=== PATIENT | male | born 1955 | race Caucasian/White ===

== ENCOUNTER 2017-11-25 08:49 | Day surgery (SDC) | payer BC ==
[~2017-11-25 08:49] MED LIST: Cefuroxime 10 MG/ML SYRINGE EYERT SCH; Lidocaine 1% PF 2 ML SDV INJECT SCH; Pilocarpine 4% Ophth Soln 15 ML Bot EYERT SCH
[2017-11-25] MEDS: Polymyxin B/Trimethoprim 10 ML Bottle EYERT SCH ×3 (10:01→11:44)
[2017-11-25] MEDS: Brimonidine 0.2% Ophth Soln 5 ML Bottle EYERT SCH ×3 (10:07→11:44)
[2017-11-25] MEDS: Phenylephrine 2.5% Ophth Soln 2 ML Bot EYERT SCH ×5 (10:16→11:26)
--- NOTE | 2017-11-25 10:32 | PCM.PREANE ---
Preanesthetic Assessment - Procedure Proposed Procedure: Right Eye extraction with implant - Anesthesia/Transfusion/Family Hx Anesthesia History: No Prior Anesthesia Family History of Anesthesia Reaction: No - Review of Systems General: No Symptoms Pulmonary: No Symptoms Cardiovascular: No Symptoms Gastrointestinal: No Symptoms Neurological: No Symptoms Other: Reports: None - Physical Assessment NPO Status Date: 11/24/17 NPO Status Time: 19:00 O2 Sat by Pulse Oximetry: 98 Respiratory Rate: 16 Vital Signs: Last Vital Signs Temp 36.4 C 11/25/17 09:50 Pulse 54 L 11/25/17 09:50 Resp 16 11/25/17 09:50 BP 129/71 11/25/17 09:50 Pulse Ox 98 11/25/17 09:50 Height: 1.83 m Weight: 90.718 kg ASA Class: 2 Mental Status: Alert & Oriented x3 Dentition: Reports: Dentures (upper ) Thyro-Mental Finger Breadths: 3 Mouth Opening Finger Breadths: 5 ROM/Head Extension: Full Lungs: Clear to Auscultation, Normal Respiratory Effort Cardiovascular: Regular Rate, Regular Rhythm - Allergies Allergies/Adverse Reactions: Allergies Allergy/AdvReac Type Severity Reaction Status Date / Time No Known Allergies Allergy Verified 11/24/17 15:01 - Blood Blood Available: No - Anesthesia Plan Pre-Op Medication Ordered: None Beta Joshua: Carvedilol Med Last Dose Date: 11/25/17 Med Last Dose Time: 07:30 - Acknowledgements Anesthesia Type Planned: MAC Pt an Appropriate Candidate for the Planned Anesthesia: Yes Alternatives and Risks of Anesthesia Discussed w Pt/Guardian: Yes Pt/Guardian Understands and Agrees with Anesthesia Plan: Yes PreAnesthesia Questionnaire - Past Health History Medical/Surgical History: Denies Medical/Surgical History - SUBSTANCE USE Recreational Drug Use History: No - HOME MEDS Home Medications: Home Meds Carvedilol [Carvedilol] 6.25 mg PO BID 11/24/17 [History] Hydrochlorothiazide [Hydrochlorothiazide] 25 mg PO DAILY 11/24/17 [History] Multivitamin [Zoo Chews] 1 tab PO DAILY 11/24/17 [History] amLODIPine Besylate [Amlodipine Besylate] 10 mg PO DAILY 11/24/17 [History] - CURRENT (IN HOUSE) MEDS Current Meds: Current Medications Brimonidine Tartrate (Alphagan 0.2% Oph Soln) 0 ml EYERT ASDIRECTED [facility]A Stop: 11/25/17 18:00 Last Admin: 11/25/17 10:07 Dose: 1 drop Cefuroxime Sodium (Zinacef) 0 mg EYERT ASDIRECTED [facility] Stop: 11/25/17 18:00 Lidocaine HCl (Xylocaine-Mpf 1%) 10 ml INJECT ASDIRECTED [facility] Stop: 11/25/17 18:00 Phenylephrine HCl (Timoteo-Synephrine 2.5% Ophth Soln) 0 ml EYERT ASDIRECTED [facility] Stop: 11/25/17 18:00 Last Admin: 11/25/17 10:16 Dose: 1 drop Pilocarpine HCl (Pilocar 4% Ophth Soln) 0 ml EYERT ASDIRECTED [facility] Stop: 11/25/17 18:00 Polymyxin/Trimethoprim Sulfate (Polytrim Ophth Soln) 0 ml EYERT ASDIRECTED [facility] Stop: 11/25/17 18:00 Last Admin: 11/25/17 10:01 Dose: 1 drop Tetracaine HCl (Tetracaine 0.5% Steri-Unit Nafisa) 0 ml EYERT ASDIRECTED [facility] Stop: 11/25/17 18:00 Tropicamide (Mydriacyl 1% Ophth Soln) 0 ml EYERT ASDIRECTED [facility] Stop: 11/25/17 18:00 Last Admin: 11/25/17 10:22 Dose: 1 drop
[2017-11-25] MEDS: Tetracaine HCl/PF 0.5% 4 ML Bottle EYERT SCH ×2 (11:09→11:34)
--- NOTE | 2017-11-25 11:59 | PCM48HPAN ---
Post Anesthesia Note - EVALUATION WITHIN 48HRS OF ANESTHETIC Vital Signs in Normal Range: Yes Patient Participated in Evaluation: Yes Respiratory Function Stable: Yes Airway Patent: Yes Cardiovascular Function Stable: Yes Hydration Status Stable: Yes Pain Control Satisfactory: Yes Nausea and Vomiting Control Satisfactory: Yes Mental Status Recovered: Yes Pulse Rate: 64 SaO2: 100 Resp Rate: 16 Temperature: 36.9 C Blood Pressure: 131/86
== END 2017-11-25 11:57 | disposition home or self-care (01) ==
LOC: JD.SDS 08:49
PROVIDERS: ATTEND Ophthalmology
DX: H25.813 Combined forms of age-related cataract, bilateral (principal); H35.3131 Nonexudative age-related macular degeneration, bilateral, early dry stage; H35.363 Drusen (degenerative) of macula, bilateral; H02.834 Dermatochalasis of left upper eyelid; H02.831 Dermatochalasis of right upper eyelid; I10 Essential (primary) hypertension; Z87.891 Personal history of nicotine dependence; Z79.899 Other long term (current) drug therapy
CPT/HCPCS: 66984; J0697; A9270-GY; C1780; J2001

== ENCOUNTER 2018-01-27 08:22 | Day surgery (SDC) | payer BC ==
[~2018-01-27 08:22] MED LIST changes: -Cefuroxime 10 MG/ML SYRINGE EYERT SCH; -Pilocarpine 4% Ophth Soln 15 ML Bot EYERT SCH
[2018-01-27] MEDS: Polymyxin B/Trimethoprim 10 ML Bottle EYELF SCH ×3 (08:57→10:34)
[2018-01-27] MEDS: Brimonidine 0.2% Ophth Soln 5 ML Bottle EYELF SCH ×3 (09:03→10:34)
[2018-01-27] MEDS: Phenylephrine 2.5% Ophth Soln 2 ML Bot EYELF SCH ×5 (09:08→10:18)
--- NOTE | 2018-01-27 09:11 | PCM.PREANE ---
Preanesthetic Assessment - Anesthesia/Transfusion/Family Hx Anesthesia History: No Prior Anesthesia Family History of Anesthesia Reaction: No Transfusion History: No Prior Transfusion(s) - Review of Systems General: No Symptoms Pulmonary: No Symptoms Cardiovascular: No Symptoms Gastrointestinal: No Symptoms Neurological: No Symptoms Other: Reports: None - Physical Assessment NPO Status Date: 01/26/18 NPO Status Time: 19:00 Pulse: 61 O2 Sat by Pulse Oximetry: 98 Respiratory Rate: 16 Blood Pressure: 124/75 Temperature: 36.6 C Vital Signs: Last Vital Signs Temp 36.6 C 01/27/18 08:50 Pulse 61 01/27/18 08:50 Resp 16 01/27/18 08:50 BP 124/75 01/27/18 08:50 Pulse Ox 98 01/27/18 08:50 Height: 1.83 m Weight: 90.718 kg ASA Class: 2 Mental Status: Alert & Oriented x3 Airway Class: Mallampati = 1 Dentition: Reports: Dentures (upper), Caries Thyro-Mental Finger Breadths: 3 Mouth Opening Finger Breadths: 3 ROM/Head Extension: Full Lungs: Clear to Auscultation, Normal Respiratory Effort Cardiovascular: Regular Rate, Regular Rhythm - Allergies Allergies/Adverse Reactions: Allergies Allergy/AdvReac Type Severity Reaction Status Date / Time No Known Allergies Allergy Verified 11/24/17 15:01 - Blood Blood Available: No Product(s) Available: None - Anesthesia Plan Pre-Op Medication Ordered: None - Acknowledgements Anesthesia Type Planned: MAC Pt an Appropriate Candidate for the Planned Anesthesia: Yes Alternatives and Risks of Anesthesia Discussed w Pt/Guardian: Yes Pt/Guardian Understands and Agrees with Anesthesia Plan: Yes PreAnesthesia Questionnaire - Past Health History Medical/Surgical History: Denies Medical/Surgical History - SUBSTANCE USE Smoking Status *Q: Former Smoker Tobacco Use Within Last Twelve Months: No Second Hand Smoke Exposure: No Days Per Week of Alcohol Use: 1 Number of Drinks Per Day: 1 Total Drinks Per Week: 1 Recreational Drug Use History: No - HOME MEDS Home Medications: Home Meds Carvedilol 6.25 mg PO BID 11/24/17 [History] Hydrochlorothiazide 25 mg PO DAILY 11/24/17 [History] Multivitamin [Zoo Chews] 1 tab PO DAILY 11/24/17 [History] amLODIPine Besylate [Amlodipine Besylate] 10 mg PO DAILY 11/24/17 [History] - CURRENT (IN HOUSE) MEDS Current Meds: Current Medications Brimonidine Tartrate (Alphagan 0.2% Ophth Soln) 0 ml EYELF ASDIRECTED [facility] Stop: 01/27/18 18:00 Last Admin: 01/27/18 09:03 Dose: 1 drop Cefuroxime Sodium (Zinacef) 0 mg EYELF ASDIRECTED [facility] Stop: 01/27/18 18:00 Lidocaine HCl (Xylocaine-Mpf 1%) 0 ml INJECT ASDIRECTED [facility] Stop: 01/27/18 18:00 Phenylephrine HCl (Timoteo-Synephrine 2.5% Ophth Soln) 0 ml EYELF ASDIRECTED [facility] Stop: 01/27/18 18:00 Last Admin: 01/27/18 09:08 Dose: 1 drop Pilocarpine HCl (Pilocar 4% Ophth Soln) 0 ml EYELF ASDIRECTED [facility] Stop: 01/27/18 18:00 Polymyxin/Trimethoprim Sulfate (Polytrim Ophth Soln) 0 ml EYELF ASDIRECTED [facility] Stop: 01/27/18 18:00 Last Admin: 01/27/18 08:57 Dose: 1 drop Tetracaine HCl (Tetracaine 0.5% Steri-Unit Nafisa) 0 ml EYELF ASDIRECTED [facility] Stop: 01/27/18 18:00 Tropicamide (Mydriacyl 1% Ophth Soln) 0 ml EYELF ASDIRECTED [facility] Stop: 01/27/18 18:00
[2018-01-27] MEDS: Tropicamide 1% Ophth Soln 3 ML Bottle EYELF SCH ×4 (09:13→10:00)
[2018-01-27] MEDS: Tetracaine HCl/PF 0.5% 4 ML Bottle EYELF SCH ×2 (10:11→10:24)
[2018-01-27] MEDS: Cefuroxime 10 MG/ML SYRINGE EYELF SCH (10:30)
[2018-01-27] MEDS: Pilocarpine 4% Ophth Soln 15 ML Bot EYELF SCH (10:34)
--- NOTE | 2018-01-27 10:41 | PCM48HPAN ---
Post Anesthesia Note - EVALUATION WITHIN 48HRS OF ANESTHETIC Vital Signs in Normal Range: Yes Patient Participated in Evaluation: Yes Respiratory Function Stable: Yes Airway Patent: Yes Cardiovascular Function Stable: Yes Hydration Status Stable: Yes Pain Control Satisfactory: Yes Nausea and Vomiting Control Satisfactory: Yes Mental Status Recovered: Yes Pulse Rate: 61 Resp Rate: 16 Temperature: 36.6 C Blood Pressure: 124/75
== END 2018-01-27 10:45 | disposition home or self-care (01) ==
LOC: JD.SDS 08:22
PROVIDERS: ATTEND Ophthalmology
DX: H25.812 Combined forms of age-related cataract, left eye (principal); H35.3131 Nonexudative age-related macular degeneration, bilateral, early dry stage; H35.363 Drusen (degenerative) of macula, bilateral; H40.003 Preglaucoma, unspecified, bilateral; H02.831 Dermatochalasis of right upper eyelid; H02.834 Dermatochalasis of left upper eyelid; I10 Essential (primary) hypertension; Z79.899 Other long term (current) drug therapy; Z98.41 Cataract extraction status, right eye; Z96.1 Presence of intraocular lens; Z98.890 Other specified postprocedural states; Z87.891 Personal history of nicotine dependence; Z83.518 Family history of other specified eye disorder
CPT/HCPCS: A9270-GY; C1780; J0697; J2001

== ENCOUNTER 2021-08-29 17:57 | Emergency (ER) | payer BC ==
[2021-08-29] MEDS ORDERED: Lidocaine 2% Jelly 10 ML Urojet MUCMEM ONE (18:48)
--- NOTE | 2021-08-29 18:52 | EDM.PDOC ---
ED HPI GENERAL MEDICAL PROBLEM - General Chief Complaint: Genitourinary Problem Stated Complaint: UNABLE TO URINATE Time Seen by Provider: 08/29/21 18:43 Source of Information: Reports: Patient, RN Notes Reviewed History Limitations: Reports: No Limitations - History of Present Illness INITIAL COMMENTS - FREE TEXT/NARRATIVE: Patient is a 66-year-old male who presents to the ER for evaluation of acute urinary retention. States that he developed issues with urgency earlier today, and feels like he is not emptying his bladder completely. States he was able to go to the bathroom a little bit, but only dribbled. He is not had issues with this in the past. Not complaining of any dysuria. Patient states that when he does try to go to the bathroom now, he is not able to get anything out except a few dribbles. Initial bladder scan at the time of triage demonstrated about 120 mils of urine in his bladder. Patient denies any other sick-like symptoms, fever/chills, cough/shortness of breath, nausea/vomiting/diarrhea. - Related Data Allergies Allergy/AdvReac Type Severity Reaction Status Date / Time No Known Allergies Allergy Verified 08/29/21 18:31 Home Meds: Home Meds Multivitamin [Zoo Chews] 1 tab PO DAILY 11/24/17 [History] amLODIPine Besylate [Amlodipine Besylate] 10 mg PO DAILY 11/24/17 [History] carvediloL [Carvedilol] 6.25 mg PO BID 11/24/17 [History] hydroCHLOROthiazide [Hydrochlorothiazide] 25 mg PO DAILY 11/24/17 [History] Past Medical History - Past Health History Medical/Surgical History: Denies Medical/Surgical History Cardiovascular History: Reports: Hypertension Social & Family History - Tobacco Use Tobacco Use Status *Q: Never Tobacco User Second Hand Smoke Exposure: No - Caffeine Use Caffeine Use: Reports: Coffee, Soda - Recreational Drug Use Recreational Drug Use: No ED ROS GENERAL - Review of Systems Review Of Systems: Comprehensive ROS is negative, except as noted in HPI. ED EXAM, RENAL/ - Physical Exam Exam: See Below Exam Limited By: No Limitations General Appearance: Alert, WD/WN, No Apparent Distress Respiratory/Chest: No Respiratory Distress, Lungs Clear, Normal Breath Sounds, No Accessory Muscle Use, Chest Non-Tender Cardiovascular: Normal Peripheral Pulses, Regular Rate, Rhythm, No Edema GI/Abdominal: Normal Bowel Sounds, Soft, Non-Tender, No Distention, No Mass Extremities: Normal Inspection, Normal Capillary Refill Neurological: Alert, Oriented, Normal Cognition, No Motor/Sensory Deficits Psychiatric: Normal Affect, Normal Mood Skin Exam: Warm, Dry, Intact, Normal Color, No Rash Course - Vital Signs Last Recorded V/S: Last Vital Signs Temp 98.0 F 08/29/21 18:30 Pulse 84 08/29/21 18:30 Resp 18 08/29/21 18:30 BP 158/94 H 08/29/21 18:30 Pulse Ox 100 08/29/21 18:30 - Orders/Labs/Meds Orders: Active Orders 24 hr Category Date Time Status Bladder Scan [RC] ASDIRECTED Care 08/29/21 18:42 Ordered UA W/MICROSCOPIC [URIN] Stat Lab 08/29/21 18:43 Ordered Labs: Laboratory Tests 08/29/21 Range/Units 19:05 Urine Color Light yellow (Yellow) Urine Appearance Slt cloudy H (Clear) Urine pH 6.5 (5.0-8.0) Ur Specific [place] 1.010 (1.005-1.030) Urine Protein 2+ H (Negative) Urine Glucose (UA) Negative (Negative) Urine Ketones Negative (Negative) Urine Occult Blood 2+ H (Negative) Urine Nitrite Negative (Negative) Urine Bilirubin Negative (Negative) Urine Urobilinogen 0.2 (0.2-1.0) Ur Leukocyte Esterase 3+ H (Negative) Meds: Medications Discontinued Medications Generic Name Dose Route Start Last Admin Trade Name Freq PRN Reason Stop Dose Admin Levofloxacin 500 mg 08/29/21 19:51 Levofloxacin 500 Mg Tab PO 08/29/21 19:52 ONETIME ONE Lidocaine HCl 10 ml 08/29/21 18:48 Lidocaine 2% Jelly 10 Ml Urojet MUCMEM 08/29/21 18:49 ONETIME ONE - Re-Assessments/Exams Free Text/Narrative Re-Assessment/Exam: 08/29/21 18:51 Patient presents to the ER for evaluation of his acute urinary retention. We will go ahead and do a quick cath and check urinalysis. I did go over options with the patient regarding possible Stephen placement and he would rather not have a Stephen placed at this time if at all possible. 08/29/21 19:31 Made aware by nursing staff, that they did rescan him on the bladder scan, and were getting readings of 250 mL in his bladder. After the straight cath nursing states that they did relieve just over 400 mils of urine from his bladder. Patient states he is feeling much better. We will await urinalysis results, and then figure out disposition. 08/29/21 19:52 Patient's urinalysis demonstrates 3+ leukocyte Estrace. Nitrite negative. Due to this being a cath urine specimen we will treat him for acute UTI. First dose of oral Levaquin was given in the ER and patient be given a prescription for ciprofloxacin through the [facility]. Patient will be urged to return to the ER by morning if he has not voided successfully. Departure - Departure Time of Disposition: 19:53 Disposition: Home, Self-Care 01 Condition: Good Clinical Impression: UTI, Urinary tract infectious disease, Retention of urine - Discharge Information *PRESCRIPTION DRUG MONITORING PROGRAM REVIEWED*: No *COPY OF PRESCRIPTION DRUG MONITORING REPORT IN PATIENT CLIVE: No Instructions: Acute Urinary Retention, Male, [id number], Urinary Tract Infection, Adult, [id number] Referrals: PCP,None [Primary Care Provider] - Forms: ED Department Discharge Additional Instructions: You have been evaluated in the ED for your urinary symptoms. Your urinalysis was consistent with an acute urinary tract infection. Your urine was sent for culture, and you will be notified if you should need a change in your antibiotic. This may take up to 48 hours to result. You were given your first dose of oral antibiotics in the ER, Levaquin. You will need to continue oral ciprofloxacin 2 times a day for the next 7 days. This medication was prescribed to you through the [facility] in our ER lobby due to it being a holiday weekend. If you still cannot void by tomorrow morning, or at max time by noon tomorrow, you will need to return to the ER for possible Stephen catheter placement. Please increase your oral fluid intake and try to stay adequately hydrated. Please return to the ED if your symptoms change or worsen. Sepsis Event Note (ED) - Focused Exam Vital Signs: Vital Signs Temp Pulse Resp BP Pulse Ox 08/29/21 18:30 98.0 F 84 18 158/94 H 100 - My Orders Last 24 Hours: My Active Orders 08/29/21 18:42 Bladder Scan [RC] ASDIRECTED 08/29/21 18:43 UA W/MICROSCOPIC [URIN] Stat - Assessment/Plan Last 24 Hours: My Active Orders 08/29/21 18:42 Bladder Scan [RC] ASDIRECTED 08/29/21 18:43 UA W/MICROSCOPIC [URIN] Stat
[2021-08-29] MEDS ORDERED: Levofloxacin 500 MG Tab PO ONE (19:51)
== END 2021-08-29 20:08 | disposition home or self-care (01) ==
LOC: JD.ED 17:57
DX: N39.0 Urinary tract infection, site not specified (principal); R33.9 Retention of urine, unspecified; I10 Essential (primary) hypertension
CPT/HCPCS: 51701; 81001; 87086; 99284; A9270; 87088; 87186

== ENCOUNTER → 2022-09-24 | Day surgery (SDC) | payer BC ==
[2022-09-24] MEDS: Brimonidine 0.2% Ophth Soln 5 ML Bottle EYERT SCH ×2 (13:55→15:03)
[2022-09-24] MEDS: Phenylephrine 2.5% Ophth Soln 2 ML Bot EYERT SCH ×3 (14:00→14:20)
[2022-09-24] MEDS: Tropicamide 1% Ophth Soln 15 ML Bottle EYERT SCH ×3 (14:05→14:25)
== END ==
LOC: JD.SDS 07:34
PROVIDERS: ATTEND Ophthalmology
DX: H26.493 Other secondary cataract, bilateral (principal); I10 Essential (primary) hypertension; Z98.890 Other specified postprocedural states; Z96.1 Presence of intraocular lens; Z87.891 Personal history of nicotine dependence
CPT/HCPCS: A9270-GY; J3490